=== PATIENT | male | born 1960 | race Hispanic/Latino ===

== ENCOUNTER 2018-08-01 16:24 | Inpatient (IN) | payer BC, SELFPAY ==
[2018-08-01] MEDS ORDERED: ACETAMINOPHEN 500 MG TAB ONE (17:00)
[2018-08-01 17:09] LABS: Urine Bacteria <20 /HPF (NONE SEEN); Urine Culture Reflex Order REFLEXED; Urine Mucus 1+ /HPF (NONE SEEN)
[2018-08-01 17:09] LABS: Urine Blood 3+ (NEG); Urine Glucose NEGATIVE (NEG); Urine Protein 2+ (NEG); Urine Specific Gravity 1.025 (1.005-1.030); Urine pH 6.5 (5.0-7.0)
[2018-08-01] MEDS ORDERED: CEFTRIAXONE/SWI 1gm 2 GM/20 ML SYR ONE (17:21)
[2018-08-01] MEDS ORDERED: NA CHLORIDE 0.9% 1,000 ML ONE (17:21)
[2018-08-01 17:25] LABS: Absolute Lymphocytes (CBC) 0.8 K/uL (0.7-4.9); Absolute Monocytes 0.7 K/uL (0.1-1.3); Absolute Neutrophil 9.4 K/uL (1.8-8.0); Basophils % 0.3 % (0-1.3); Hematocrit 49.2 % (39.6-49.0); Lymphocytes % 7.5 % (15.3-44.8); MPV 8.1 fL (7.6-11.3); Monocytes % 6.5 % (3.3-12.3); RBC Red Blood Cell Count 5.78 M/uL (4.33-5.43)
[2018-08-01 17:34] LABS: Potassium 3.8 mmol/L (3.5-5.1)
[2018-08-01] MEDS ORDERED: NA CHLORIDE 0.9% 2,000 ML ONE (18:17)
--- NOTE | 2018-08-01 18:22 | EDPHYS ---
Physician Documentation [facility] Name: Carlos Godoy Age: 58 yrs Sex: Male : 1960 Arrival Date: 08/01/2018 Time: 16:30 Bed 15 Private MD: Sujatha Sellers K ED Physician Hank Youssef HPI: 08/01 16:51 This 58 yrs old Male presents to ER via Ambulatory with complaints of Fever, cp Blood Pressure Problem, Urinary Problem, high heart rate. 16:51 The patient reports fever, with an emergency department temperature of 100.1 degrees cp Fahrenheit. 16:51 Onset: The symptoms/episode began/occurred 2 day(s) ago. Associated signs and symptoms: cp Pertinent positives: headache, urinary frequency. Historical: - Allergies: 16:36 No Known Allergies; ss - Home Meds: 16:36 None [Active]; ss - PMHx: 16:36 CAD; ss - PSHx: 16:36 quadruple bypass; ss - Immunization history:: Adult Immunizations up to date. - Social history:: Smoking status: Patient/guardian denies using tobacco. - Ebola Screening: : Patient denies exposure to infectious person Patient denies travel to an Ebola-affected area in the 21 days before illness onset. ROS: 16:55 Constitutional: Positive for fever, Negative for poor PO intake. cp 16:55 ENT: Negative for sore throat. 16:55 Cardiovascular: Negative for chest pain, edema. 16:55 Respiratory: Negative for cough, shortness of breath, wheezing. 16:55 Abdomen/GI: Negative for abdominal pain, vomiting, diarrhea, constipation. 16:55 Skin: Negative for rash. 16:55 Neuro: Positive for headache, Negative for altered mental status, weakness. 16:55 All other systems are negative. Exam: 17:00 Constitutional: The patient appears in no acute distress, alert, awake, cp non-diaphoretic, non-toxic, well developed, well nourished. 17:00 Head/Face: Normocephalic, atraumatic. Eyes: Pupils equal round and reactive to light, cp extra-ocular motions intact. Lids and lashes normal. Conjunctiva and sclera are non-icteric and not injected. Cornea within normal limits. Periorbital areas with no swelling, redness, or edema. ENT: Nares patent. No nasal discharge, no septal abnormalities noted. Tympanic membranes are normal and external auditory canals are clear. Oropharynx with no redness, swelling, or masses, exudates, or evidence of obstruction, uvula midline. Mucous membranes moist. Neck: Trachea midline, no thyromegaly or masses palpated, and no cervical lymphadenopathy. Supple, full range of motion without nuchal rigidity, or vertebral point tenderness. No Meningismus. Chest/axilla: Normal chest wall appearance and motion. Nontender with no deformity. No lesions are appreciated. 17:00 Cardiovascular: Rate: tachycardic, Rhythm: regular, Edema: is not appreciated, JVD: is not appreciated. 17:00 Respiratory: the patient does not display signs of respiratory distress, Respirations: normal, no use of accessory muscles, no retractions, no splinting, no tachypnea, labored breathing, is not present. 17:00 Abdomen/GI: Inspection: abdomen appears normal, Bowel sounds: active, all quadrants, Palpation: abdomen is soft and non-tender, in all quadrants, rebound tenderness, is not appreciated, involuntary guarding, is not appreciated. 17:00 Back: pain, is absent, ROM is normal. 17:00 Skin: no rash present. 17:00 Neuro: Orientation: to person, place \T\ time. Mentation: is normal, Cerebellar function: is grossly normal, Motor: moves all fours, strength is normal, Sensation: is normal. 17:10 ECG was reviewed by the Attending Physician. cp Vital Signs: 16:36 BP 108 / 72; Pulse 110; Resp 16; Temp 100.1(O); Pulse Ox 98% on R/A; Weight 93.44 kg; ss Height 5 ft. 6 in. (167.64 cm); Pain 2/10; 17:00 BP 115 / 77; Pulse 103; Resp 19; Pulse Ox 98% ; rv 17:30 BP 110 / 77 LA; Pulse 96; Resp 18 S; Pulse Ox 97% on R/A; rv 18:00 BP 105 / 73 LA; Pulse 91; Resp 17 S; Pulse Ox 96% on R/A; rv 16:36 Body Mass Index 33.25 (93.44 kg, 167.64 cm) MDM: 16:39 Patient medically screened. cp 17:00 Differential diagnosis: viral Infection, bacterial infection, pneumonia UTI, meningitis. 18:02 Data reviewed: vital signs, nurses notes, lab test result(s), EKG, I have discussed the patient's presentation/case with the attending Emergency Department Physician; and as a result, I will admit patient. 18:02 Test interpretation: by ED physician or midlevel provider: ECG. Counseling: I had a cp detailed discussion with the patient and/or guardian regarding: the historical points, exam findings, and any diagnostic results supporting the discharge/admit diagnosis, lab results, the need for further work-up and treatment in the hospital. Response to treatment: the patient's symptoms have markedly improved after treatment. 18:15 Physician consultation: Aldo Rosa DO was called at 18:10, was contacted at 18:10, regarding admission, to the medical/surgical unit. and will see patient in ED, shortly. 08/01 16:47 Order name: Urine Microscopic Only; Complete Time: 17:25 ss 08/01 17:26 Interpretation: Normal except: UWBC 20-50; URBC 10-20. 08/01 16:47 Order name: Urine Dipstick--Ancillary (enter results); Complete Time: 17:25 eb 08/01 17:26 Interpretation: Normal except: UBLD 3+; UPROT 2+; U NIT POSITIVE; UESTR TRACE. 08/01 16:55 Order name: Blood Culture Adult (2) 08/01 16:55 Order name: Urine Culture 08/01 16:55 Order name: Influenza Screen (a \T\ B); Complete Time: 17:58 08/01 16:55 Order name: Procalcitonin; Complete Time: 17:58 08/01 16:55 Order name: Lactate; Complete Time: 17:58 08/01 16:55 Order name: BMP; Complete Time: 17:58 08/01 17:58 Interpretation: Normal except: GLUC 109; BUN 22; GFR 71. 08/01 16:55 Order name: CBC with Diff; Complete Time: 17:58 08/01 16:55 Order name: EKG; Complete Time: 16:55 08/01 16:55 Order name: EKG - Nurse/Tech; Complete Time: 17:29 cp EC:10 Rate is 101 beats/min. Rhythm is regular. SC interval is normal. QRS interval is cp normal. QT interval is normal. T waves are Inverted in lead aVL. Interpreted by me. Reviewed by me. Administered Medications: 17:00 Drug: NS 0.9% 1000 ml Route: IV; Rate: 1 bolus; Site: left antecubital; rv 20:18 Follow up: IV Status: Completed infusion rv 17:00 Drug: Tylenol 1000 mg Route: PO; rv 18:11 Follow up: Response: Temperature is decreased rv 17:25 Drug: Rocephin - (cefTRIAXone) 2 grams Route: IVPB; Infused Over: 30 mins; Site: right rv antecubital; 18:11 Follow up: IV Status: Completed infusion rv 18:10 Drug: NS 0.9% (30 ml/kg) 30 ml/kg Route: IV; Rate: bolus; Site: right antecubital; rv 19:47 Follow up: IV Status: Completed infusion rv Disposition: 18:30 Chart complete. cp Disposition: 08/01/18 18:21 Hospitalization ordered by Aldo Rosa for Observation. Preliminary diagnosis is Urinary tract infection, site not specified. - Bed requested for Telemetry/MedSurg (observation). - Status is Observation. ed1 - Condition is Stable. - Problem is new. - Symptoms have improved. UTI on Admission? Yes Addendum: 08/05/2018 07:02 Co-signature as Attending Physician, Hank Youssef MD. r n Signatures: Dispatcher [employer] EDMS Hank Youssef MD MD rn Smirch, Shelby, RN RN Sharlene Adames RN RN ed1 Kang Aguilar PA PA cp Botello, Elizabeth eb Larry Drummond RN RN rv Corrections: (The following items were deleted from the chart) 08/01 18:45 18:21 Hospitalization Ordered by Aldo Rosa DO for Observation. Preliminary eb diagnosis is Urinary tract infection, site not specified. Bed requested for Telemetry/MedSurg (observation). Status is Observation. Condition is Stable. Problem is new. Symptoms have improved. UTI on Admission? Yes. cp 20:16 18:45 08/01/2018 18:21 Hospitalization Ordered by Aldo Rosa DO for Observation. ed1 Preliminary diagnosis is Urinary tract infection, site not specified. Bed requested for Telemetry/MedSurg (observation). Status is Observation. Condition is Stable. Problem is new. Symptoms have improved. UTI on Admission? Yes. eb
--- NOTE | 2018-08-01 18:22 | ER ---
Nurse's Notes [facility] Name: Carlos Godoy Age: 58 yrs Sex: Male : 1960 Arrival Date: 08/01/2018 Time: 16:30 Bed 15 Private MD: Sujatha Sellers K Diagnosis: Urinary tract infection, site not specified Presentation: 08/01 16:35 Presenting complaint: Patient states: fever, headache, decreased appetite and possible ss blood in urine that began 2 days ago. Transition of care: patient was not received from another setting of care. Onset of symptoms was July 30, 2018. Risk Assessment: Do you want to hurt yourself or someone else? Patient reports no desire to harm self or others. Care prior to arrival: None. 16:35 Method Of Arrival: Ambulatory ss 16:35 Acuity: CARMEN 3 ss 17:30 Initial Sepsis Screen: Does the patient meet any 2 criteria? No. Patient's initial rv sepsis screen is negative. Does the patient have a suspected source of infection? No. Patient's initial sepsis screen is negative. Historical: - Allergies: 16:36 No Known Allergies; ss - Home Meds: 16:36 None [Active]; ss - PMHx: 16:36 CAD; ss - PSHx: 16:36 quadruple bypass; ss - Immunization history:: Adult Immunizations up to date. - Social history:: Smoking status: Patient/guardian denies using tobacco. - Ebola Screening: : Patient denies exposure to infectious person Patient denies travel to an Ebola-affected area in the 21 days before illness onset. Screenin:29 Abuse screen: Denies threats or abuse. Denies injuries from another. Nutritional rv screening: No deficits noted. Tuberculosis screening: No symptoms or risk factors identified. Fall Risk None identified. Assessment: 17:29 General: Appears in no apparent distress. comfortable, Behavior is calm, cooperative. rv Pain: Complains of pain in head. Neuro: Level of Consciousness is awake, alert, obeys commands, Oriented to person, place, time, situation. Cardiovascular: Capillary refill < 3 seconds. Respiratory: Airway is patent. GI: No signs and/or symptoms were reported involving the gastrointestinal system. : No signs and/or symptoms were reported regarding the genitourinary system. EENT: No signs and/or symptoms were reported regarding the EENT system. Derm: Skin is intact. Musculoskeletal: No signs and/or symptoms reported regarding the musculoskeletal system. 18:14 Reassessment: Patient appears in no apparent distress at this time. Patient and/or rv family updated on plan of care and expected duration. Pain level reassessed. Patient is alert, oriented x 3, equal unlabored respirations, skin warm/dry/pink. Patient denies pain at this time. Patient states feeling better. Patient states symptoms have improved. Vital Signs: 16:36 BP 108 / 72; Pulse 110; Resp 16; Temp 100.1(O); Pulse Ox 98% on R/A; Weight 93.44 kg; ss Height 5 ft. 6 in. (167.64 cm); Pain 2/10; 17:00 BP 115 / 77; Pulse 103; Resp 19; Pulse Ox 98% ; rv 17:30 BP 110 / 77 LA; Pulse 96; Resp 18 S; Pulse Ox 97% on R/A; rv 18:00 BP 105 / 73 LA; Pulse 91; Resp 17 S; Pulse Ox 96% on R/A; rv 16:36 Body Mass Index 33.25 (93.44 kg, 167.64 cm) ED Course: 16:30 Patient arrived in ED. mr 16:30 Sujatha Sellers MD is Private Physician. mr 16:36 Triage completed. ss 16:36 Arm band placed on right wrist. ss 16:39 Larry Drummond, STEPHY is Primary Nurse. rv 16:39 Kang Aguilar PA is PHCP. cp 16:39 Hank Youssef MD is Attending Physician. cp 17:10 EKG done, by turbine technician. reviewed by Kang JOLLEY. 3 17:15 Inserted saline lock: 20 gauge in right antecubital area, using aseptic technique. rv Blood collected. 17:30 Patient has correct armband on for positive identification. Bed in low position. Call rv light in reach. Side rails up X 1. Adult w/ patient. Pulse ox on. NIBP on. 18:20 Aldo Rosa DO is Hospitalizing Provider. cp 20:18 No provider procedures requiring assistance completed. Patient admitted, IV remains in rv place. Administered Medications: 17:00 Drug: NS 0.9% 1000 ml Route: IV; Rate: 1 bolus; Site: left antecubital; rv 20:18 Follow up: IV Status: Completed infusion rv 17:00 Drug: Tylenol 1000 mg Route: PO; rv 18:11 Follow up: Response: Temperature is decreased rv 17:25 Drug: Rocephin - (cefTRIAXone) 2 grams Route: IVPB; Infused Over: 30 mins; Site: right rv antecubital; 18:11 Follow up: IV Status: Completed infusion rv 18:10 Drug: NS 0.9% (30 ml/kg) 30 ml/kg Route: IV; Rate: bolus; Site: right antecubital; rv 19:47 Follow up: IV Status: Completed infusion rv Outcome: 18:21 Decision to Hospitalize by Provider. cp 20:16 Patient left the ED. ed1 20:19 Admitted to Med/surg accompanied by nurse, via wheelchair, room 219, with chart, Report rv called to RITU KEYES 20:19 Condition: good 20:19 Instructed on the need for admit. Signatures: Maddi Macdonald mr Robyn Burris, RN RN Sharlene Adames RN RN ed1 Kang Aguilar PA PA Nerissa Abdul sm3 Larry Drummond RN RN rv Corrections: (The following items were deleted from the chart) 17:28 17:00 Rocephin - (cefTRIAXone) 2 grams IVPB in right antecubital over 30 mins rv rv
--- NOTE | 2018-08-01 18:35 | P.HP ---
Certification for Inpatient Patient admitted to: Observation With expected LOS: <2 Midnights Patient will require the following post-hospital care: None Practitioner: I am a practitioner with admitting privileges, knowledge of patient current condition, hospital course, and medical plan of care. Services: Services provided to patient in accordance with Admission requirements found in Title 42 Section 412.3 of the Code of Federal Regulations Patient History Date of Service: 08/01/18 Primary Care Provider: Dr. Spencer Reason for admission: Fever, dysuria History of Present Illness: 58-year-old male presented to emergency room with fever, dysuria and urine frequency. Patient was seen by his PCP and sent to the ER. Patient reported pain over the last day. He denies any nausea, vomiting, chest pain or shortness of breath. Patient with history of CAD with prior CABG. In the ER patient evaluated. Patient slightly tachycardic upon evaluation. White count 11. Lactic acid normal. Pro calcitonin slightly elevated. Urinalysis showed evidence of UTI. Patient was admitted for observation. When I saw the patient the ER, he appeared comfortable. Patient had received IV fluids and antibiotic therapy in the emergency room. Family present at bedside. Patient does not appear septic. Patient is seen by Cardiology. Patient appears to be non compliant with his medication. Home medications list reviewed: Yes - Past Medical/Surgical History Diabetic: No -: CAD with prior CABG -: Hyperlipidemia -: Obesity -: Former tobacco use -: CABG Psychosocial/ Personal History: Patient is with multiple kids. - Family History Family History: Reviewed- Non-Contributory - Social History Smoking Status: Former smoker Alcohol use: No CD- Drugs: No Caffeine use: No Place of Residence: Home Review of Systems General: Fever, Chills, Malaise, As per HPI Eyes: Unremarkable ENT: Unremarkable Respiratory: Unremarkable Cardiovascular: Unremarkable Gastrointestinal: Unremarkable Genitourinary: Dysuria, Frequency, As per HPI Musculoskeletal: Unremarkable Integumentary: Unremarkable Neurological: Unremarkable Lymphatics: Unremarkable Physical Examination - Physical Exam General: Alert, In no apparent distress, Oriented x3, Cooperative HEENT: Atraumatic, Normocephalic, PERRLA, Mucous membr. moist/pink Neck: Supple, No Thyromegaly Respiratory: Clear to auscultation bilaterally, Normal air movement Cardiovascular: Normal pulses, Regular rate/rhythm Gastrointestinal: Normal bowel sounds, Soft and benign, Non-distended, No tenderness, No masses, No rebound, No guarding Musculoskeletal: No erythema, No tenderness, No warmth Integumentary: No tenderness/swelling, No erythema, No warmth, No cyanosis Neurological: Normal speech, Normal strength at 5/5 x4 extr, Normal tone, Normal affect - Studies Laboratory Data (last 24 hrs) 08/01/18 17:00: WBC 11.0 H, Hgb 16.2, Hct 49.2 H, Plt Count 155 08/01/18 17:00: Sodium 138, Potassium 3.8, BUN 22 H, Creatinine 1.07, Glucose 109 H Microbiology Data (last 24 hrs): 08/01/18 17:00 Nasopharnyx Influenza Type A Antigen Screen - Final 08/01/18 17:00 Nasopharnyx Influenza Type B Antigen Screen - Final Assessment and Plan - Plan Impression: Fever, chills with dysuria secondary to UTI CAD with prior CABG Hyperlipidemia Obesity Plan: Fever, chills with dysuria secondary to UTI: Patient has responded well to antibiotic therapy and IV fluids in the emergency room. Will continue with IV antibiotics and IV fluids. Will reassess tomorrow. Monitor CBC and BMP. Blood and urine culture obtained. Anticipate discharge in the next 24 hr if with significant improvement. Will monitor closely. Will provide DVT prophylaxis-Lovenox. CAD with prior CABG: Patient reports noncompliance with his current medications. Patient seen by Cardiology. Will restart aspirin and Plavix. Hyperlipidemia: Patient has not been taking his medication. Patient reports taking cholesterol medication. Will start Lipitor. Check fasting lipid panel. Obesity: Will calculate BMI. Will address lifestyle modification education. Discharge Plan: Home Plan to discharge in: 24 Hours - Advance Directives Does patient have a Living Will: No Does patient have a Durable POA for Healthcare: No - Code Status/Comfort Care Code Status Assessed: Yes (Patient full code.) Time Spent Managing Pts Care (In Minutes): 55
[2018-08-01] MEDS ORDERED: ONDANSETRON 4 MG/2 ML VIAL IV PRN (20:04)
[2018-08-01] MEDS: NA CHLORIDE 0.9% 1,000 ML IV SCH (20:46)
[2018-08-01] MEDS: ATORVASTATIN 40 MG TAB PO SCH (20:46)
[2018-08-02] MEDS: ACETAMINOPHEN 500 MG TAB PO PRN ×3 (00:03→22:10)
[2018-08-02 06:00] LABS: Absolute Lymphocytes (CBC) 1.3 K/uL (0.7-4.9); Absolute Monocytes 1.5 K/uL (0.1-1.3); Absolute Neutrophil 10.3 K/uL (1.8-8.0); Basophils % 0.4 % (0-1.3); Eosinophils % 0.2 % (0-4.4); Hematocrit 44.4 % (39.6-49.0); Lymphocytes % 9.9 % (15.3-44.8); MPV 8.3 fL (7.6-11.3); Monocytes % 11.1 % (3.3-12.3); RBC Red Blood Cell Count 5.26 M/uL (4.33-5.43)
[2018-08-02] MEDS: NA CHLORIDE 0.9% 1,000 ML IV SCH ×3 (06:16→18:33)
[2018-08-02 06:20] LABS: BUN Blood Urea Nitrogen 16 mg/dL (7-18); Bicarbonate 23 mmol/L (21-32); Glucose Level 127 mg/dL (74-106); HDL Cholesterol 42 mg/dL (40-60); LDL Cholesterol, Calculated 94 (<130); Magnesium 2.1 mg/dL (1.8-2.4); Sodium Level 141 mmol/L (136-145)
[2018-08-02] MEDS ORDERED: CEFTRIAXONE 1 GM/NS 50 ML 1 GM/50 ML BAG IV SCH (09:00)
[2018-08-02] MEDS: FAMOTIDINE 20 MG TAB PO SCH (09:03)
[2018-08-02] MEDS: CEFTRIAXONE/SWI 1gm 1 GM/10 ML SYR IV SCH (09:03)
[2018-08-02] MEDS: ENOXAPARIN 40 MG/0.4 ML SQ SCH (09:04)
[2018-08-02] MEDS: CLOPIDOGREL 75 MG TABLET PO SCH (09:04)
[2018-08-02] MEDS: ASPIRIN EC 81 MG TAB PO SCH (09:04)
--- NOTE | 2018-08-02 14:27 | P.PN ---
Subjective Date of Service: 08/02/18 Primary Care Provider: Dr. Spencer Chief Complaint: Fever, dysuria Subjective: Other (Patient appears improved. family at bedside.) Physical Examination - Vital Signs Temperature: 99.4 F Blood Pressure: 112/66 Pulse: 96 Respirations: 20 Pulse Ox (%): 98 - Physical Exam General: Alert, In no apparent distress, Oriented x3, Cooperative HEENT: Atraumatic Neck: Supple Respiratory: Clear to auscultation bilaterally, Normal air movement Cardiovascular: Normal pulses, Regular rate/rhythm Gastrointestinal: Normal bowel sounds, Soft and benign, Non-distended, No tenderness, No masses, No rebound, No guarding Musculoskeletal: No erythema, No tenderness, No warmth Integumentary: No tenderness/swelling, No erythema, No warmth, No cyanosis Neurological: Normal speech, Normal strength at 5/5 x4 extr, Normal tone, Normal affect - Studies Laboratory Data (last 24 hrs) 08/02/18 05:30: Sodium 141, Potassium 4.0, BUN 16, Creatinine 0.78, Glucose 127 H, Magnesium 2.1, Triglycerides 77, Cholesterol 151, HDL Cholesterol 42, Cholesterol/HDL Ratio 3.60 08/02/18 05:30: WBC 13.1 H D, Hgb 15.0, Hct 44.4, Plt Count 139 L 08/01/18 17:00: WBC 11.0 H, Hgb 16.2, Hct 49.2 H, Plt Count 155 08/01/18 17:00: Sodium 138, Potassium 3.8, BUN 22 H, Creatinine 1.07, Glucose 109 H Microbiology Data (last 24 hrs): 08/01/18 17:00 Nasopharnyx Influenza Type A Antigen Screen - Final 08/01/18 17:00 Nasopharnyx Influenza Type B Antigen Screen - Final Medications List Reviewed: Yes Assessment & Plan Discharge Plan: Home Plan to discharge in: 48 Hours Physician Review Additional Text: Impression: Fever, chills secondary to UTI with bacteremia, urine culture positive for Gram- negative rods CAD with prior CABG Hyperlipidemia Pre diabetes Obesity, BMI 34 Plan: Fever, chills secondary to UTI with bacteremia, urine culture positive for gram- negative rods: Patient has improved with IV fluids and antibiotic therapy. Blood cultures now positive. Will hold off on discharged until culture results are finalized. Patient will require 2 weeks of antibiotic therapy. This was discussed in detail with patient and family. Patient with poor hygiene. Hygiene recommendations address to prevent UTI in the future. Continue with DVT prophylaxis. Await culture results. Continue to monitor lab closely. Continue IV fluids. Encourage ambulation and oral intake. CAD with prior CABG: Continue to address compliance with his current medications. Patient seen by Cardiology as an outpatient. Will continue with his medication. Hyperlipidemia: Will continue with his medication. Compliance addressed. Pre diabetes: A1c 5.7. Lifestyle modification education addressed. Recommend to recheck A1c in 3 months. Obesity, BMI 34: Continue to address lifestyle modification education. Time Spent Managing Pts Care (In Minutes): 55
[2018-08-02] MEDS ORDERED: MELATONIN 3 MG TABLET PO PRN (20:42)
[2018-08-02] MEDS: ATORVASTATIN 40 MG TAB PO SCH (22:10)
[2018-08-03] MEDS: NA CHLORIDE 0.9% 1,000 ML IV SCH (03:47)
[2018-08-03 08:24] LABS: Absolute Lymphocytes (CBC) 1.2 K/uL (0.7-4.9); Absolute Monocytes 0.9 K/uL (0.1-1.3); Absolute Neutrophil 6.4 K/uL (1.8-8.0); Basophils % 0.3 % (0-1.3); Eosinophils % 1.2 % (0-4.4); Hematocrit 47.1 % (39.6-49.0); Lymphocytes % 14.1 % (15.3-44.8); MPV 8.5 fL (7.6-11.3); Monocytes % 10.8 % (3.3-12.3); RBC Red Blood Cell Count 5.62 M/uL (4.33-5.43)
[2018-08-03] MEDS: CEFTRIAXONE/SWI 1gm 1 GM/10 ML SYR IV SCH (09:08)
[2018-08-03] MEDS: ENOXAPARIN 40 MG/0.4 ML SQ SCH (09:08)
[2018-08-03] MEDS: FAMOTIDINE 20 MG TAB PO SCH (09:09)
[2018-08-03] MEDS: CLOPIDOGREL 75 MG TABLET PO SCH (09:09)
[2018-08-03] MEDS: ASPIRIN EC 81 MG TAB PO SCH (09:09)
--- NOTE | 2018-08-03 09:10 | P.DS ---
Admission Date: 08/02/18 Discharge Date: 08/03/18 Primary Care Provider: Dr. Spencer Disposition: ROUTINE DISCHARGE Discharge Condition: GOOD Reason for Admission: Fever, dysuria Consultations: none Procedures: Medical problem list: Fever, chills secondary to UTI with bacteremia, urine culture positive for E coli Pre diabetes CAD with prior CABG Hyperlipidemia Obesity, BMI 34 Brief History of Present Illness: 58-year-old male presented to emergency room with fever, dysuria and urine frequency. Patient was seen by his PCP and sent to the ER. Patient reported pain over the last day. He denies any nausea, vomiting, chest pain or shortness of breath. Patient with history of CAD with prior CABG. In the ER patient evaluated. Patient slightly tachycardic upon evaluation. White count 11. Lactic acid normal. Pro calcitonin slightly elevated. Urinalysis showed evidence of UTI. Patient was admitted for observation. When I saw the patient the ER, he appeared comfortable. Patient had received IV fluids and antibiotic therapy in the emergency room. Family present at bedside. Patient does not appear septic. Patient is seen by Cardiology. Patient appears to be non compliant with his medication. Hospital Course: Patient presented with fever, chills. Patient found to have UTI. Blood cultures were also positive. Patient was given IV fluids and antibiotic therapy. Patient responded to IV antibiotic therapy. At discharge patient without fever, chills. Patient back to baseline. Urine culture positive for E coli. Blood cultures positive for gram-negative rods suspect also E coli. CBC improved. At discharge patient will continue with Bactrim DS 1 pill twice daily for total of 14 days. Recommend to follow up with his PCP early next week. Blood cultures will need to be followed closely by a PCP. Recommend to recheck blood culture and urine culture after treatment to monitor resolution. UTI prevention and hygiene addressed in detail. Patient would benefit with urology evaluation as an outpatient. Patient with CAD and prior CABG. Patient had not been compliance with his medication. Patient previously taking aspirin and Plavix. Patient will continue with his medications-aspirin 81 mg daily and Plavix 75 mg daily. Recommend to follow up with cardiology to further address and monitor. Patient with hyperlipidemia. Compliance with medication addressed in detail. Patient will continue with his medication-Lipitor 40 mg daily. Patient with pre diabetes. A1c 5.7. Lifestyle modification education addressed in detail. Recommend to recheck A1c in 3 months. Vital Signs/Physical Exam: Temp Pulse Resp BP Pulse Ox 99.1 F 69 16 114/71 96 08/03/18 04:00 08/03/18 04:00 08/03/18 04:00 08/03/18 04:00 08/03/18 04:00 General: Alert, In no apparent distress, Oriented x3, Cooperative HEENT: Atraumatic Neck: Supple Respiratory: Clear to auscultation bilaterally, Normal air movement Cardiovascular: Normal pulses, Regular rate/rhythm Gastrointestinal: Normal bowel sounds, Soft and benign, Non-distended, No tenderness, No masses, No rebound, No guarding Musculoskeletal: No erythema, No tenderness, No warmth Integumentary: No tenderness/swelling, No erythema, No warmth, No cyanosis Neurological: Normal speech, Normal strength at 5/5 x4 extr, Normal tone, Normal affect Laboratory Data at Discharge: WBC 8.7 K/uL (4.3-10.9) D 08/03/18 08:11 Hgb 16.0 g/dL (13.6-17.9) 08/03/18 08:11 Hct 47.1 % (39.6-49.0) 08/03/18 08:11 Plt Count 154 K/uL (152-406) 08/03/18 08:11 Sodium 141 mmol/L (136-145) 08/02/18 05:30 Potassium 4.0 mmol/L (3.5-5.1) 08/02/18 05:30 BUN 16 mg/dL (7-18) 08/02/18 05:30 Creatinine 0.78 mg/dL (0.55-1.3) 08/02/18 05:30 Glucose 127 mg/dL (74-106) H 08/02/18 05:30 Magnesium 2.1 mg/dL (1.8-2.4) 08/02/18 05:30 Triglycerides 77 mg/dL (<150) 08/02/18 05:30 Cholesterol 151 mg/dL (<200) 08/02/18 05:30 HDL Cholesterol 42 mg/dL (40-60) 08/02/18 05:30 Cholesterol/HDL Ratio 3.60 08/02/18 05:30 Home Medications: Aspirin [Aspirin EC 81 MG] 81 mg PO DAILY #90 tablet. 08/03/18 Atorvastatin Calcium [Lipitor] 40 mg PO BEDTIME #30 tab 08/03/18 Clopidogrel Bisulfate [Plavix*] 75 mg PO DAILY #30 tablet 08/03/18 Sulfamethoxazole/Trimethoprim [Bactrim Ds Tablet] 1 each PO BID #28 tablet 08/03 New Medications: Aspirin [Aspirin EC 81 MG] 81 mg PO DAILY #90 tablet. Atorvastatin Calcium [Lipitor] 40 mg PO BEDTIME #30 tab Clopidogrel Bisulfate [Plavix*] 75 mg PO DAILY #30 tablet Sulfamethoxazole/Trimethoprim [Bactrim Ds Tablet] 1 each PO BID #28 tablet Patient Discharge Instructions: 1. Follow up with his PCP early next week to follow up this hospitalization. 2. Patient presented with fever, chills. Patient found to have UTI. Blood cultures were also positive. Patient was given IV fluids and antibiotic therapy. Patient responded to IV antibiotic therapy. At discharge patient without fever, chills. Patient back to baseline. Urine culture positive for E coli. Blood cultures positive for gram- negative rods suspect also E coli. CBC improved. At discharge patient will continue with Bactrim DS 1 pill twice daily for total of 14 days. Recommend to follow up with his PCP early next week. Blood cultures will need to be followed closely by a PCP. Recommend to recheck blood culture and urine culture after treatment to monitor resolution. UTI prevention and hygiene addressed in detail. Patient would benefit with urology evaluation as an outpatient. 3. Patient with CAD and prior CABG. Patient had not been compliance with his medication. Patient previously taking aspirin and Plavix. Patient will continue with his medications-aspirin 81 mg daily and Plavix 75 mg daily. Recommend to follow up with cardiology to further address and monitor. 4. Patient with hyperlipidemia. Compliance with medication addressed in detail. Patient will continue with his medication-Lipitor 40 mg daily. 5. Patient with pre diabetes. A1c 5.7. Lifestyle modification education addressed in detail. Recommend to recheck A1c in 3 months. Diet: AHA Activity: Ad elzbieta Time spent managing pt's care (in minutes): 55
--- NOTE | 2018-08-06 11:25 | EKG ---
Test Date: 2018-08-01 Test Time: 17:04:10 Nail Machine Operator: ELLIE MEASUREMENT RESULTS: Intervals: Rate: 101 NC: 144 QRSD: 90 QT: 318 QTc: 412 Scott: P: 31 NC: 144 QRS: 19 T: 72 INTERPRETIVE STATEMENTS: Sinus tachycardia Otherwise normal ECG Compared to ECG 03/04/2007 13:39:53 Sinus rhythm no longer present Myocardial infarct finding no longer present Electronically Signed On 08-02-18 09:52:26 CDT by Robert Reeder
== END 2018-08-03 10:26 | disposition home or self-care (01) | DRG 690 ==
LOC: ER 16:24 → INTOOBSV 18:43 → ERHOLD 18:43 → OBSVTOIN 18:43 → 2ND 19:57 → OBSVTOIN 08-02 10:54
PROVIDERS: ADMIT Family Medicine; ATTEND Family Medicine
DX: N39.0 Urinary tract infection, site not specified (principal); R78.81 Bacteremia; B96.20 Unspecified Escherichia coli [E. coli] as the cause of diseases classified elsewhere; R73.03 Prediabetes; I25.10 Atherosclerotic heart disease of native coronary artery without angina pectoris; Z95.1 Presence of aortocoronary bypass graft; E78.5 Hyperlipidemia, unspecified; E66.9 Obesity, unspecified; Z68.34 Body mass index [BMI] 34.0-34.9, adult; Z91.14 Patient's other noncompliance with medication regimen; Z79.02 Long term (current) use of antithrombotics/antiplatelets; Z79.82 Long term (current) use of aspirin; Z87.891 Personal history of nicotine dependence
CPT/HCPCS: 36415; 80048; 80061; 81003; 81015; 83036; 83605; 83735; 84145; 85025; 87040; 87077; 87086; 87088; 87186; 87205; 87804; 93005; 96361; 96365; 99285; G0378; J0696; J1650; J7030